=== PATIENT | male | born 1985 | race Caucasian/White ===

== ENCOUNTER 2017-10-12 20:42 | Emergency (ER) | payer BC, OTHER ==
[~2017-10-12] VITALS: Ht 185.4 cm; Wt 116.3 kg
[~2017-10-12 20:42] MED LIST: ASPI-390 PO; CLX/20 PO; CRFL PO; OXYC-609 PO; PANT1TAB3 PO; PROAIR PO
[2017-10-12 20:50] VITALS: TEMP 37; Ht 185.4 cm; Wt 116.3 kg
--- NOTE | 2017-10-12 21:00 | EMERGENCY ROOM VISIT NOTE ---
History Report prepared by Esdras: Sussy Lind Under the Supervision of: Dr. Cristain Pena M.D. First contact with patient: 20:54 Chief Complaint: FALL Stated Complaint: FELL OFF LADDER- WC History of Present Illness The patient is a 32 year old male who presents to the Emergency Room with complaints of constant back pain beginning this evening. He reports he fell off a ladder and landed on his back, on his R side. The patient notes he hit his head on the concrete, and is unsure if he lost consciousness or not. He states he does not fully remember the incident as he was dazed and unable to breathe for a time. The patient states he donated his liver 2 years ago, and has chronic tenderness in his side following the operation. No bleeding. Pain is moderate in nature. No radiation of the pain, and is located primarily over the right side of the lateral chest and right abdomen in the upper quadrant. Source of History: patient Onset: this evening Position: back Quality: other (back pain) Timing: constant Note: Associated symptom: lack of memory of fall Review of Systems See HPI for pertinent positives and negatives. A total of ten systems were reviewed and were otherwise negative. Past Medical & Surgical Surgical Problems: (1) Hx of cholecystectomy (2) Liver donor Family History Cancer Diabetes mellitus Gallbladder disease Heart disease Hypertension Social History Smoking Status: Never Smoker Alcohol Use: none Marital Status: single Housing Status: lives with family Current/Historical Medications Scheduled Oszvbcb-Lxplkzednxong-Qlepccyk (Excedrin Migraine), 2 TABS PO PRN UD Citalopram (Citalopram Hydrobromide), 20 MG PO DAILY Pantoprazole (Protonix), 1 TAB PO DAILY Sucralfate (Carafate), 10 ML PO BID Scheduled PRN Acetaminophen/Codeine (Tylenol W/Codeine #3), 1 TABS PO TID PRN for Pain Oxycodone HCl (Oxycodone HCl), 5 MG PO Q6 PRN for Pain [Proair], 2 PUFF PO QID PRN for SOB/Wheezing Allergies Coded Allergies: No Known Allergies (Verified , 02/24/16) Physical Exam Vital Signs Date Time Temp Pulse Resp B/P (MAP) Pulse Ox O2 Delivery O2 Flow Rate FiO2 10/12/17 21:58 80 18 176/93 96 Room Air 10/12/17 20:50 37.0 92 20 174/103 96 Room Air Physical Exam Physical Exam GENERAL: He is oriented to person, place, and time. He appears well-developed and well-nourished. He does not appear distressed. HENT: Exam performed. Head: Normocephalic and atraumatic. Right Ear: External ear normal. No mastoid tenderness. Left Ear: External ear normal. No mastoid tenderness. Mouth/Throat: The oropharynx is clear and moist. No trismus in the jaw. No dental abscesses or uvula swelling. No oropharyngeal exudate or tonsillar abscesses. EYES: Conjunctivae and EOM are normal. Pupils are equal, round, and reactive to light. Right eye exhibits no discharge. Left eye exhibits no discharge. No scleral icterus. NECK: Normal range of motion. Neck supple. No JVD present. No spinous process tenderness present. No carotid bruit present. No rigidity. No tracheal deviation and normal range of motion present. No Brudzinski's sign and no Kernig 's sign noted. CV: Normal rate, regular rhythm, normal heart sounds and intact distal pulses. There is no peripheral edema. Palpable radial pulses bue. PULM/CHEST: Effort normal and breath sounds normal. No respiratory distress. No stridor. He has no wheezes. He has no rales. Chest Wall: Pain on palpation of R inferior lateral ribs, no crepitus. ABD: The abdomen is soft. Bowel sounds are normal. He has no distension. No mass is present. Pain on palpation of RUQ. There is no rebound, no guarding, no Ortega's sign and no tenderness at McBurney's point. Rovsig negative. MUSC/SKEL: Normal range of motion. There is no peripheral edema or deformity. Pain on palpation of thoracic spine, no cervical or lumbar spine tenderness. LYMPH: No cervical adenopathy. NEURO: He is alert and oriented to person, place, and time. He has normal strength. No cranial nerve deficit or sensory deficit. Coordination and gait normal. GCS eye subscore is 4. GCS verbal subscore is 5. GCS motor subscore is 6. Cerebellar tests wnl. SKIN: Skin is warm and dry. He is not diaphoretic. PSYCH: He has a normal mood and affect. Behavior is normal. Judgment and thought content normal. Medical Decision & Procedures ER Provider Diagnostic Interpretation: Radiology results as stated below per my review and radiologist interpretation: R RIBS UNILATERAL WITH PA CHEST CLINICAL HISTORY: fall off ladder R inferior lateral rib pain COMPARISON STUDY: No previous studies for comparison. FINDINGS: Nondisplaced cortical fracture anterior right 10th rib. All remaining ribs are unremarkable. Lungs are clear. No evidence pneumothorax. IMPRESSION: Nondisplaced cortical fracture anterior right 10th rib. The lungs are clear. The above report was generated using voice recognition software. It may contain grammatical, syntax or spelling errors. Electronically signed by: Blair Wood M.D. 10/12/2017 9:31 PM Dictated Date/Time: 10/12/2017 9:30 PM HEAD WITHOUT CONTRAST (CT) CT DOSE: 2059.52 mGy.cm HISTORY: Trauma fall off ladder possible LOC TECHNIQUE: Multiaxial CT images of the head were performed without the use of intravenous contrast. A dose lowering technique was utilized adhering to the principles of ALARA. Comparison: None. Findings: The paranasal sinuses and mastoid air cells are clear. The calvarium and skull base are intact. The ventricles and sulci are within normal limits. There is no mass, hematoma, midline shift, or acute infarct. Impression: No acute intracranial abnormality. The above report was generated using voice recognition software. It may contain grammatical, syntax or spelling errors. Electronically signed by: Blair Wood M.D. 10/12/2017 9:36 PM Dictated Date/Time: 10/12/2017 9:36 PM ABD/PELVIS IV CONTRAST ONLY CT DOSE: HISTORY: Trauma fall off ladder R abdominal pain hx of liver donation TECHNIQUE: Multiaxial CT images of the abdomen and pelvis were performed following the use of intravenous contrast. A dose lowering technique was utilized adhering to the principles of ALARA. COMPARISON STUDY: 01/01/2017. FINDINGS: Lung bases are clear. Operative changes consistent with a prior partial hepatectomy and cholecystectomy. Moderately distended stomach with gastric content throughout. Spleen and kidneys appear unremarkable. Bowel pattern is nonobstructive. No free fluid within the abdominal or pelvic region. Bladder is midline. No acute bony abnormalities appreciated. IMPRESSION: No significant abnormality identified within the abdomen or pelvis. Pre-existing postoperative changes of a partial hepatectomy and cholecystectomy. The above report was generated using voice recognition software. It may contain grammatical, syntax or spelling errors. Electronically signed by: Blair Wood M.D. 10/12/2017 9:40 PM Dictated Date/Time: 10/12/2017 9:37 PM Laboratory Results Test 10/12/17 21:15 Bedside Hemoglobin 16.0 g/dl (14.0-18.0) Bedside Hematocrit 47 % (42-52) Bedside Sodium 143 mEq/L (135-144) Bedside Potassium 3.9 mEq/L (3.3-5.0) Bedside Chloride 104 mEq/L (101-112) Bedside Total CO2 25 mEq/l (24-31) Anion Gap 19.0 mmol/L (16-25) Bedside Blood Urea Nitrogen 15 mg/dl (7-18) Bedside Creatinine 0.8 mg/dl (0.6-1.3) Bedside Glucose (other) 107 mg/dl (70-99) Bedside Ionized Calcium (Gila) 1.23 mmol/l (1.12-1.32) Laboratory results reviewed by me Medications Administered Medications (Trade) Dose Ordered Sig/Cruz Route Start Time Stop Time Status Last Admin Dose Admin Ketorolac Tromethamine (Toradol Inj) 15 mg NOW STAT IV 10/12/17 21:35 10/12/17 21:36 DC 10/12/17 21:35 15 MG ED Course 2054: The patient was evaluated in room A3. A complete history and physical exam was performed. 2134: Ordered Toradol Inj 15 mg IV. 2145: Labs within normal limits. Imaging within normal limits with the exception of the right 10th rib fracture, nondisplaced. No pneumothorax. Discharge with analgesia and incentive spirometer.DISCHARGE - Plan of care discussed with patient and questions answered. The patient was given both verbal and printed discharge instructions. The patient verbalized understanding and ability to comply. The patient is to seek outpatient follow up as noted in the discharge instructions. The patient verbalized understanding and ability to comply. The patient is discharged in stable condition. The patient was instructed to return for worsening symptoms. Medical Decision Labs within normal limits. Imaging within normal limits with the exception of the right 10th rib fracture, nondisplaced. No pneumothorax. Discharge with analgesia and incentive spirometer.DISCHARGE - Plan of care discussed with patient and questions answered. The patient was given both verbal and printed discharge instructions. The patient verbalized understanding and ability to comply. The patient is to seek outpatient follow up as noted in the discharge instructions. The patient verbalized understanding and ability to comply. The patient is discharged in stable condition. The patient was instructed to return for worsening symptoms. [place] Drug Monitoring Program Search Results: patient reviewed within database, no issues identified Medication Reconcilliation Current Medication List: was personally reviewed by me Blood Pressure Screening Patient's blood pressure: Elevated blood pressure Impression Primary Impression: Rib fracture Scribe Attestation The scribe's documentation has been prepared under my direction and personally reviewed by me in its entirety. I confirm that the note above accurately reflects all work, treatment, procedures, and medical decision making performed by me. The chart was completed utilizing [employer] Speech voice recognition software. Grammatical errors, random word insertions, pronoun errors, and incomplete sentences are an occasional consequence of this system due to software limitations, ambient noise, and hardware issues. Any formal questions or concerns about the content, text, or information contained within the body of this dictation should be directly addressed to the physician for clarification. Departure Information Dispostion Home / Self-Care Prescriptions Acetaminophen/Codeine (Tylenol W/Codeine #3) 300 Mg/30 Mg Tab 1 TABS PO TID Y for Pain, #14 TAB Prov: Cristian Pena M.D. 10/12/17 Referrals Blair Yeh M.D. (PCP) Forms HOME CARE DOCUMENTATION FORM, IMPORTANT VISIT INFORMATION Patient Instructions My [facility] Problem Qualifiers Primary Impression: Rib fracture Encounter type: initial encounter Rib fracture type: single rib Fracture type: closed Laterality: right Qualified Codes: S22.31XA - Fracture of one rib, right side, initial encounter for closed fracture
[2017-10-12] MEDS ORDERED: OPTIRAY 320 IV PRN (21:15)
[2017-10-12 21:32] LABS: ISTAT CREATININE 0.8 mg/dl (0.6-1.3); ISTAT IONIZED CALCIUM 1.23 mmol/l (1.12-1.32); ISTAT POTASSIUM 3.9 mEq/L (3.3-5.0)
--- NOTE | 2017-10-12 21:33 | DIAGNOSTIC IMAGING REPORT ---
R RIBS UNILATERAL WITH PA CHEST CLINICAL HISTORY: fall off ladder R inferior lateral rib pain COMPARISON STUDY: No previous studies for comparison. FINDINGS: Nondisplaced cortical fracture anterior right 10th rib. All remaining ribs are unremarkable. Lungs are clear. No evidence pneumothorax. IMPRESSION: Nondisplaced cortical fracture anterior right 10th rib. The lungs are clear. The above report was generated using voice recognition software. It may contain grammatical, syntax or spelling errors. Electronically signed by: Blair Wood M.D. 10/12/2017 9:31 PM Dictated Date/Time: 10/12/2017 9:30 PM
[2017-10-12] MEDS ORDERED: KETOROLAC TROMETHAMINE 30 MG/ML VIAL IV STA (21:35)
--- NOTE | 2017-10-12 21:38 | DIAGNOSTIC IMAGING REPORT ---
HEAD WITHOUT CONTRAST (CT) CT DOSE: 2059.52 mGy.cm HISTORY: Trauma fall off ladder possible LOC TECHNIQUE: Multiaxial CT images of the head were performed without the use of intravenous contrast. A dose lowering technique was utilized adhering to the principles of ALARA. Comparison: None. Findings: The paranasal sinuses and mastoid air cells are clear. The calvarium and skull base are intact. The ventricles and sulci are within normal limits. There is no mass, hematoma, midline shift, or acute infarct. Impression: No acute intracranial abnormality. The above report was generated using voice recognition software. It may contain grammatical, syntax or spelling errors. Electronically signed by: Blair Wood M.D. 10/12/2017 9:36 PM Dictated Date/Time: 10/12/2017 9:36 PM
--- NOTE | 2017-10-12 21:41 | DIAGNOSTIC IMAGING REPORT ---
ABD/PELVIS IV CONTRAST ONLY CT DOSE: HISTORY: Trauma fall off ladder R abdominal pain hx of liver donation TECHNIQUE: Multiaxial CT images of the abdomen and pelvis were performed following the use of intravenous contrast. A dose lowering technique was utilized adhering to the principles of ALARA. COMPARISON STUDY: 01/01/2017. FINDINGS: Lung bases are clear. Operative changes consistent with a prior partial hepatectomy and cholecystectomy. Moderately distended stomach with gastric content throughout. Spleen and kidneys appear unremarkable. Bowel pattern is nonobstructive. No free fluid within the abdominal or pelvic region. Bladder is midline. No acute bony abnormalities appreciated. IMPRESSION: No significant abnormality identified within the abdomen or pelvis. Pre-existing postoperative changes of a partial hepatectomy and cholecystectomy. The above report was generated using voice recognition software. It may contain grammatical, syntax or spelling errors. Electronically signed by: Blair Wood M.D. 10/12/2017 9:40 PM Dictated Date/Time: 10/12/2017 9:37 PM
[2017-10-12] MEDS ORDERED: ACET300T3 PO (21:51)
[2017-10-12 21:58] VITALS: BP 176/93; PULSE 80; O2SAT 96
[2017-10-12] MEDS ORDERED: VENL37.593 PO (22:47)
[2017-10-12] MEDS ORDERED: VENL75CA73 PO (22:48)
[2017-10-12] MEDS ORDERED: ALBU18002 INH (22:52)
== END 2017-10-12 22:14 | disposition home or self-care (01) ==
LOC: C.EDB 20:43 → C.EDA 22:14
DX: S22.31XA Fracture of one rib, right side, initial encounter for closed fracture (principal); R10.9 Unspecified abdominal pain; W11.XXXA Fall on and from ladder, initial encounter; Z79.899 Other long term (current) drug therapy; Z52.6 Liver donor; Z83.3 Family history of diabetes mellitus; Z82.49 Family history of ischemic heart disease and other diseases of the circulatory system; Z83.79 Family history of other diseases of the digestive system